=== PATIENT | female | born 1990 | race Caucasian/White ===

== ENCOUNTER 2016-11-19 06:52 | Emergency (ER) | payer MEDICAID ==
[~2016-11-19] VITALS: Ht 170.2 cm; Wt 58.3 kg
[~2016-11-19 06:52] MED LIST: CITA10TA4 PO; HYDR25TA11 PO; NAPR500T3 PO; TRAZ100T15 PO
[2016-11-19] MEDS ORDERED: ALBU0.63 NEB (08:09)
[2016-11-19] MEDS ORDERED: FAMOTIDINE 20 MG/2 ML IVP ONE (08:30)
[2016-11-19] MEDS ORDERED: SODIUM CHLORIDE 0.9% 1,000ML IVBOLUS ONE (08:30)
[2016-11-19] MEDS ORDERED: ONDANSETRON 2MG/ML, 2ML IVPush ONE (08:30)
[2016-11-19 08:52] LABS: ASPARTATE AMINO TRANSFERASE 17 U/L (15-37); BLOOD UREA NITROGEN 10 mg/dL (7-18)
[2016-11-19] MEDS ORDERED: FAMOTIDINE 20 MG/2 ML ONE (09:12)
[2016-11-19] MEDS ORDERED: ONDANSETRON 2MG/ML, 2ML ONE (09:13)
[2016-11-19 10:11] VITALS: BP 96/63
== END 2016-11-19 10:14 | disposition home or self-care (01) ==
LOC: ED 09:46
DX: K52.9 Noninfective gastroenteritis and colitis, unspecified (principal); F17.210 Nicotine dependence, cigarettes, uncomplicated; G40.909 Epilepsy, unspecified, not intractable, without status epilepticus; J45.909 Unspecified asthma, uncomplicated
CPT/HCPCS: 36415; 80053; 81003; 84703; 85025; 96374; 96375; 99284; J2405; J7030; S0028

== ENCOUNTER 2017-01-14 17:19 | Emergency (ER) | payer MEDICAID ==
[~2017-01-14] VITALS: Ht 170.2 cm; Wt 57.6 kg
[~2017-01-14 17:19] MED LIST changes: +ALBU0.63 NEB
[2017-01-14 17:23] VITALS: BP 117/76
== END 2017-01-14 18:32 | disposition home or self-care (01) ==
LOC: ED 18:25
DX: S83.91XA Sprain of unspecified site of right knee, initial encounter (principal); M25.461 Effusion, right knee; J45.909 Unspecified asthma, uncomplicated; F17.200 Nicotine dependence, unspecified, uncomplicated; Z88.5 Allergy status to narcotic agent; Z91.013 Allergy to seafood; X58.XXXA Exposure to other specified factors, initial encounter; Y93.89 Activity, other specified; Y92.89 Other specified places as the place of occurrence of the external cause; Y99.8 Other external cause status
CPT/HCPCS: 29505

== ENCOUNTER 2017-02-10 18:29 | Emergency (ER) | payer MEDICAID ==
[~2017-02-10] VITALS: Ht 170.2 cm; Wt 59.1 kg
[2017-02-10] MEDS ORDERED: CYCLOBENZAPRINE 10 MG TABLET ONE (19:26)
[2017-02-10] MEDS ORDERED: CYCLOBENZAPRINE 10 MG TABLET PO ONE (19:30)
[2017-02-10 19:37] LABS: BLOOD UREA NITROGEN 10 mg/dL (7-18)
[2017-02-10] MEDS ORDERED: KETOROLAC 30 MG/1 ML IM ONE (20:00)
[2017-02-10] MEDS ORDERED: KETOROLAC 30 MG/1 ML ONE (20:04)
[2017-02-10 20:55] VITALS: BP 107/69
== END 2017-02-10 20:57 | disposition home or self-care (01) ==
LOC: ED 19:54
DX: M26.621 Arthralgia of right temporomandibular joint (principal); G44.219 Episodic tension-type headache, not intractable; J45.909 Unspecified asthma, uncomplicated; Z98.51 Tubal ligation status
CPT/HCPCS: 36415; 70450; 80048; 81003; 82040; 85025; 93005; 96372; 99285; J1885

== ENCOUNTER 2017-03-29 14:54 | Emergency (ER) | payer MEDICAID ==
[~2017-03-29] VITALS: Ht 170.2 cm; Wt 57.0 kg
[2017-03-29 14:56] VITALS: BP 118/87
[2017-03-29] MEDS ORDERED: IBUPROFEN 200 MG TABLET ONE (15:24)
[2017-03-29] MEDS ORDERED: IBUPROFEN 200 MG TABLET PO ONE (15:30)
== END 2017-03-29 16:16 | disposition home or self-care (01) ==
LOC: ED 15:50
DX: S63.521A Sprain of radiocarpal joint of right wrist, initial encounter (principal); J45.909 Unspecified asthma, uncomplicated; F17.210 Nicotine dependence, cigarettes, uncomplicated; X58.XXXA Exposure to other specified factors, initial encounter; Y93.89 Activity, other specified; Y92.89 Other specified places as the place of occurrence of the external cause; Y99.8 Other external cause status
CPT/HCPCS: 29125

== ENCOUNTER 2017-08-14 10:51 | Emergency (ER) | payer MEDICAID ==
[~2017-08-14] VITALS: Ht 170.2 cm; Wt 60.1 kg
[~2017-08-14 10:51] MED LIST changes: -NAPR500T3 PO; +NAPR500T4 PO
[2017-08-14 10:53] VITALS: BP 118/79
[2017-08-14] MEDS ORDERED: SUMA25TA4 PO (11:17)
[2017-08-14] MEDS ORDERED: QUET25TA5 PO (11:17)
[2017-08-14] MEDS ORDERED: NAPR250T6 PO (11:17)
[2017-08-14] MEDS ORDERED: TRAZ100T15 PO (11:17)
== END 2017-08-14 12:01 | disposition home or self-care (01) ==
LOC: ED 11:55
DX: S83.91XA Sprain of unspecified site of right knee, initial encounter (principal); M54.9 Dorsalgia, unspecified; G89.29 Other chronic pain; F17.200 Nicotine dependence, unspecified, uncomplicated; J45.909 Unspecified asthma, uncomplicated; W10.9XXA Fall (on) (from) unspecified stairs and steps, initial encounter; Y93.89 Activity, other specified; Y99.8 Other external cause status; Y92.89 Other specified places as the place of occurrence of the external cause
CPT/HCPCS: 29505; 99284

== ENCOUNTER 2017-09-04 09:23 | Emergency (ER) | payer MEDICAID ==
[~2017-09-04] VITALS: Ht 170.2 cm; Wt 60.1 kg
[~2017-09-04 09:23] MED LIST changes: +NAPR250T6 PO; +QUET25TA5 PO; +SUMA25TA4 PO
[2017-09-04 09:24] VITALS: BP 113/72
== END 2017-09-04 10:19 | disposition home or self-care (01) ==
LOC: ED 09:50
DX: M25.561 Pain in right knee (principal); J45.909 Unspecified asthma, uncomplicated
CPT/HCPCS: 99283

== ENCOUNTER 2017-10-14 13:59 | Emergency (ER) | payer MEDICAID ==
[~2017-10-14] VITALS: Ht 172.7 cm; Wt 59.6 kg
[~2017-10-14 13:59] MED LIST changes: +NAPR-685 PO; -NAPR500T4 PO
[2017-10-14] MEDS ORDERED: DIPHENHYDRAMINE 25 MG CAPSULE PO ONE (14:30)
[2017-10-14] MEDS ORDERED: KETOROLAC 30 MG/1 ML IM ONE (14:30)
[2017-10-14] MEDS ORDERED: ONDANSETRON ODT 4 MG PO ONE (14:30)
[2017-10-14] MEDS ORDERED: KETOROLAC 30 MG/1 ML ONE (14:40)
[2017-10-14] MEDS ORDERED: ONDANSETRON ODT 4 MG ONE (14:40)
[2017-10-14] MEDS ORDERED: DIPHENHYDRAMINE 25 MG CAPSULE ONE (14:40)
[2017-10-14 15:45] VITALS: BP 115/65
== END 2017-10-14 15:46 | disposition home or self-care (01) ==
LOC: ED 15:40
DX: G43.909 Migraine, unspecified, not intractable, without status migrainosus (principal); M54.5 Low back pain; G89.29 Other chronic pain; J45.909 Unspecified asthma, uncomplicated; F32.9 Major depressive disorder, single episode, unspecified; F41.9 Anxiety disorder, unspecified
CPT/HCPCS: 70450; 96372; 99284; J1885; Q0162; Q0163

== ENCOUNTER 2017-12-26 16:01 | Emergency (ER) | payer MEDICAID ==
[~2017-12-26] VITALS: Ht 170.2 cm; Wt 57.9 kg
[~2017-12-26 16:01] MED LIST changes: +VISTARIL PO
[2017-12-26 16:08] VITALS: BP 113/79
== END 2017-12-26 18:10 | disposition left against medical advice (07) ==
LOC: ED 18:04
DX: M25.531 Pain in right wrist (principal)
CPT/HCPCS: 99281

== ENCOUNTER 2018-01-15 11:15 | Emergency (ER) | payer MEDICAID ==
[~2018-01-15] VITALS: Ht 170.2 cm; Wt 58.0 kg
[2018-01-15 12:03] LABS: BASOPHILS # (AUTO) 0.06 x10^3/uL (0-0.1); BASOPHILS % (AUTO) 1 % (0-1); EOSINOPHILS # (AUTO) 0.13 x10^3/uL (0-0.4); EOSINOPHILS % (AUTO) 2 % (1-7); LYMPHOCYTES # (AUTO) 2.51 x10^3/uL (1-3.4); LYMPHOCYTES % (AUTO) 33 % (22-44); MD NO; MEAN CORPUSCULAR HEMOGLOBIN 28.1 pg (27.0-34.8); MEAN CORPUSCULAR HGB CONC 32.8 g/dL (32.4-35.8); MEAN CORPUSCULAR VOLUME 85.6 fL (80-100); MEAN PLATELET VOLUME 10.5 fL (7.4-10.4); MONOCYTES % (AUTO) 7 % (2-9); NEUTROPHILS # (AUTO) 4.41 x10^3/uL (1.8-6.8); NEUTROPHILS % (AUTO) 58 % (42-75); PLATELET COUNT 205 x10^3/uL (130-400); RED BLOOD COUNT 4.53 x10^6/uL (3.82-5.3); RED CELL DISTRIBUTION WIDTH 13.6 % (9.6-15.2)
[2018-01-15 12:15] LABS: ALANINE AMINOTRANSFERASE 22 U/L (12-78); ALBUMIN 3.8 g/dL (3.4-5.0); ANION GAP 3 mmol/L (5-15); CALCIUM 8.8 mg/dL (8.5-10.1); CHLORIDE 111 mmol/L (98-107); CREATININE 0.82 mg/dL (0.55-1.02)
[2018-01-15 12:20] LABS: ALKALINE PHOSPHATASE 74 U/L (45-117); BILIRUBIN,TOTAL 0.2 mg/dL (0.2-1.0); TOTAL PROTEIN 7.3 g/dL (6.4-8.2)
[2018-01-15] MEDS ORDERED: HYDR25CA PO (12:27)
[2018-01-15] MEDS ORDERED: TRAZ50TA18 PO (12:27)
[2018-01-15] MEDS ORDERED: ONDANSETRON ODT 4 MG PO ONE (12:30)
[2018-01-15 12:32] LABS: MICROSCOPIC NOT IND
[2018-01-15] MEDS ORDERED: ONDANSETRON ODT 4 MG ONE (12:32)
[2018-01-15 12:39] LABS: CULTURE INDICATED? NO
[2018-01-15 13:32] VITALS: BP 96/64
== END 2018-01-15 13:37 | disposition home or self-care (01) ==
LOC: ED 12:30
DX: R11.2 Nausea with vomiting, unspecified (principal); R10.9 Unspecified abdominal pain; M79.1 Myalgia
CPT/HCPCS: 36415; 74021; 80053; 81003; 83690; 84703; 85025; 99285; Q0162

== ENCOUNTER 2018-01-24 03:38 | Emergency (ER) | payer MEDICAID ==
[~2018-01-24] VITALS: Ht 170.2 cm; Wt 57.0 kg
[~2018-01-24 03:38] MED LIST changes: +HYDR25CA PO; +TRAZ50TA18 PO
[2018-01-24 03:40] VITALS: BP 110/75
== END 2018-01-24 04:53 | disposition home or self-care (01) ==
LOC: ED 04:47
DX: R07.89 Other chest pain (principal); R05 Cough; J45.909 Unspecified asthma, uncomplicated; Z91.013 Allergy to seafood; Z88.6 Allergy status to analgesic agent; F17.200 Nicotine dependence, unspecified, uncomplicated
CPT/HCPCS: 71046; 93005; 99284

== ENCOUNTER 2018-02-19 03:54 | Emergency (ER) | payer MEDICAID ==
[~2018-02-19] VITALS: Ht 170.2 cm; Wt 57.8 kg
[~2018-02-19 03:54] MED LIST changes: +TRAZ-136 PO; +TRAZ-137 PO; -TRAZ100T15 PO; -TRAZ50TA18 PO
[2018-02-19 03:56] VITALS: BP 106/74
== END 2018-02-19 04:20 | disposition home or self-care (01) ==
LOC: ED 04:15
DX: R07.89 Other chest pain (principal); J45.909 Unspecified asthma, uncomplicated
CPT/HCPCS: 93005; 99283

== ENCOUNTER 2018-03-24 10:41 | Emergency (ER) | payer MEDICAID ==
[~2018-03-24] VITALS: Ht 170.2 cm; Wt 57.9 kg
[2018-03-24 12:02] LABS: BASOPHILS # (AUTO) 0.02 x10^3/uL (0-0.1); BASOPHILS % (AUTO) 0 % (0-1); EOSINOPHILS # (AUTO) 0.12 x10^3/uL (0-0.4); EOSINOPHILS % (AUTO) 2 % (1-7); LYMPHOCYTES # (AUTO) 1.75 x10^3/uL (1-3.4); LYMPHOCYTES % (AUTO) 33 % (22-44); MD NO; MEAN CORPUSCULAR HEMOGLOBIN 28.4 pg (27.0-34.8); MEAN CORPUSCULAR HGB CONC 32.9 g/dL (32.4-35.8); MEAN CORPUSCULAR VOLUME 86.1 fL (80-100); MEAN PLATELET VOLUME 10.6 fL (7.4-10.4); MONOCYTES # (AUTO) 0.33 x10^3/uL (0.2-0.8); MONOCYTES % (AUTO) 6 % (2-9); NEUTROPHILS # (AUTO) 3.11 x10^3/uL (1.8-6.8); NEUTROPHILS % (AUTO) 58 % (42-75); PLATELET COUNT 170 x10^3/uL (130-400); RED BLOOD COUNT 4.67 x10^6/uL (3.82-5.3); RED CELL DISTRIBUTION WIDTH 14.9 % (9.6-15.2)
[2018-03-24 12:11] LABS: ALBUMIN 3.7 g/dL (3.4-5.0); ANION GAP 8 mmol/L (5-15); CHLORIDE 112 mmol/L (98-107)
[2018-03-24 12:17] LABS: ALANINE AMINOTRANSFERASE 20 U/L (12-78); ALKALINE PHOSPHATASE 77 U/L (45-117); BILIRUBIN,TOTAL 0.4 mg/dL (0.2-1.0); CREATININE 0.75 mg/dL (0.55-1.02); TOTAL PROTEIN 7.5 g/dL (6.4-8.2)
[2018-03-24] MEDS ORDERED: ONDANSETRON ODT 4 MG ONE (12:24)
[2018-03-24] MEDS ORDERED: ONDANSETRON ODT 4 MG PO ONE (12:30)
[2018-03-24 12:47] LABS: MICROSCOPIC NOT IND
[2018-03-24 12:53] LABS: CULTURE INDICATED? NO
[2018-03-24 13:17] VITALS: BP 108/65
== END 2018-03-24 13:58 | disposition home or self-care (01) ==
LOC: ED 13:30
DX: K29.00 Acute gastritis without bleeding (principal); G43.909 Migraine, unspecified, not intractable, without status migrainosus; G89.29 Other chronic pain; J45.909 Unspecified asthma, uncomplicated; G40.909 Epilepsy, unspecified, not intractable, without status epilepticus; Z90.89 Acquired absence of other organs; Z98.51 Tubal ligation status
CPT/HCPCS: 36415; 80053; 81003; 83690; 84703; 85025; 99284; Q0162

== ENCOUNTER 2018-05-12 18:32 | Emergency (ER) | payer MEDICAID ==
[~2018-05-12] VITALS: Ht 170.2 cm; Wt 59.0 kg
[2018-05-12 18:59] LABS: BASOPHILS # (AUTO) 0.03 x10^3/uL (0-0.1); BASOPHILS % (AUTO) 0 % (0-1); EOSINOPHILS # (AUTO) 0.15 x10^3/uL (0-0.4); EOSINOPHILS % (AUTO) 2 % (1-7); LYMPHOCYTES # (AUTO) 2.37 x10^3/uL (1-3.4); LYMPHOCYTES % (AUTO) 32 % (22-44); MD NO; MEAN CORPUSCULAR HEMOGLOBIN 29.2 pg (27.0-34.8); MEAN CORPUSCULAR HGB CONC 33.5 g/dL (32.4-35.8); MEAN PLATELET VOLUME 10.8 fL (7.4-10.4); MONOCYTES # (AUTO) 0.34 x10^3/uL (0.2-0.8); MONOCYTES % (AUTO) 5 % (2-9); NEUTROPHILS # (AUTO) 4.51 x10^3/uL (1.8-6.8); NEUTROPHILS % (AUTO) 61 % (42-75); PLATELET COUNT 199 x10^3/uL (130-400); RED BLOOD COUNT 4.66 x10^6/uL (3.82-5.3); RED CELL DISTRIBUTION WIDTH 13.6 % (9.6-15.2)
[2018-05-12 19:10] LABS: ALANINE AMINOTRANSFERASE 21 U/L (12-78); ALBUMIN 2.9 g/dL (3.4-5.0); ANION GAP 8 mmol/L (5-15); CALCIUM 8.3 mg/dL (8.5-10.1); CHLORIDE 111 mmol/L (98-107); CREATININE 0.79 mg/dL (0.55-1.02)
[2018-05-12 19:12] LABS: ALKALINE PHOSPHATASE 57 U/L (45-117); BILIRUBIN,TOTAL 0.2 mg/dL (0.2-1.0); TOTAL PROTEIN 5.8 g/dL (6.4-8.2)
[2018-05-12 19:14] VITALS: BP 116/69
[2018-05-12] MEDS ORDERED: PANTOPRAZOLE 20MG TABLET PO ONE (19:30)
[2018-05-12] MEDS ORDERED: ONDANSETRON ODT 4 MG PO ONE (19:30)
[2018-05-12] MEDS ORDERED: PANTOPRAZOLE 20MG TABLET ONE (19:37)
[2018-05-12] MEDS ORDERED: ONDANSETRON ODT 4 MG ONE (19:37)
[2018-05-12 19:59] LABS: MICROSCOPIC NOT IND
[2018-05-12 20:00] LABS: CULTURE INDICATED? NO
== END 2018-05-12 20:14 | disposition home or self-care (01) ==
LOC: ED 19:57
DX: B34.9 Viral infection, unspecified (principal); R10.84 Generalized abdominal pain; J02.9 Acute pharyngitis, unspecified; R11.2 Nausea with vomiting, unspecified; F17.200 Nicotine dependence, unspecified, uncomplicated
CPT/HCPCS: 36415; 80053; 81003; 81025; 83690; 85025; 87081; 87880; 99284; Q0162

== ENCOUNTER 2018-05-19 19:10 | Emergency (ER) | payer MEDICAID ==
[~2018-05-19] VITALS: Ht 170.2 cm; Wt 55.0 kg
[2018-05-19 19:39] LABS: BASOPHILS # (AUTO) 0.05 x10^3/uL (0-0.1); BASOPHILS % (AUTO) 1 % (0-1); EOSINOPHILS # (AUTO) 0.09 x10^3/uL (0-0.4); EOSINOPHILS % (AUTO) 1 % (1-7); LYMPHOCYTES # (AUTO) 2.54 x10^3/uL (1-3.4); LYMPHOCYTES % (AUTO) 23 % (22-44); MD NO; MEAN CORPUSCULAR HEMOGLOBIN 29.2 pg (27.0-34.8); MEAN CORPUSCULAR HGB CONC 33.7 g/dL (32.4-35.8); MEAN CORPUSCULAR VOLUME 86.5 fL (80-100); MEAN PLATELET VOLUME 10.5 fL (7.4-10.4); MONOCYTES # (AUTO) 0.45 x10^3/uL (0.2-0.8); MONOCYTES % (AUTO) 4 % (2-9); NEUTROPHILS # (AUTO) 8.05 x10^3/uL (1.8-6.8); NEUTROPHILS % (AUTO) 72 % (42-75); PLATELET COUNT 224 x10^3/uL (130-400); RED BLOOD COUNT 4.74 x10^6/uL (3.82-5.3); RED CELL DISTRIBUTION WIDTH 13.8 % (9.6-15.2)
[2018-05-19 19:46] VITALS: BP 106/64
[2018-05-19 19:47] LABS: ALANINE AMINOTRANSFERASE 25 U/L (12-78); ALBUMIN 3.8 g/dL (3.4-5.0); ANION GAP 7 mmol/L (5-15); CALCIUM 8.6 mg/dL (8.5-10.1); CHLORIDE 110 mmol/L (98-107); CREATININE 0.73 mg/dL (0.55-1.02)
[2018-05-19 19:51] LABS: ALKALINE PHOSPHATASE 69 U/L (45-117); BILIRUBIN,TOTAL 0.4 mg/dL (0.2-1.0); TOTAL PROTEIN 6.7 g/dL (6.4-8.2)
[2018-05-19 20:08] LABS: MICROSCOPIC AUTO
[2018-05-19 20:11] LABS: CULTURE INDICATED? YES
[2018-05-19] MEDS ORDERED: CEFDINIR 300 MG CAPSULE PO ONE (20:23)
[2018-05-19] MEDS ORDERED: CEFDINIR 300 MG CAPSULE ONE (20:34)
== END 2018-05-19 20:56 | disposition home or self-care (01) ==
LOC: ED 19:41
DX: N10 Acute pyelonephritis (principal); G89.29 Other chronic pain; G40.909 Epilepsy, unspecified, not intractable, without status epilepticus; J45.909 Unspecified asthma, uncomplicated
CPT/HCPCS: 36415; 80053; 81001; 84703; 85025; 87077; 87086; 87186; 99284

== ENCOUNTER 2018-06-04 13:27 | Emergency (ER) | payer MEDICAID ==
[~2018-06-04] VITALS: Ht 170.2 cm; Wt 60.8 kg
[2018-06-04 13:32] VITALS: BP 109/56
[2018-06-04] MEDS ORDERED: DEXAMETHASONE 4 MG/ML, 1ML PO ONE (14:30)
[2018-06-04] MEDS ORDERED: DEXAMETHASONE 4 MG/ML, 5ML ONE (14:34)
== END 2018-06-04 15:01 | disposition home or self-care (01) ==
LOC: ED 14:55
DX: J02.0 Streptococcal pharyngitis (principal); B95.5 Unspecified streptococcus as the cause of diseases classified elsewhere; J45.909 Unspecified asthma, uncomplicated; G40.909 Epilepsy, unspecified, not intractable, without status epilepticus; G43.909 Migraine, unspecified, not intractable, without status migrainosus; F17.200 Nicotine dependence, unspecified, uncomplicated; Z90.89 Acquired absence of other organs; Z98.890 Other specified postprocedural states; Z98.51 Tubal ligation status
CPT/HCPCS: 70360; 99283; J1100

== ENCOUNTER 2018-06-15 18:34 | Emergency (ER) | payer MEDICAID ==
[~2018-06-15] VITALS: Ht 170.2 cm; Wt 59.8 kg
[~2018-06-15 18:34] MED LIST changes: -TRAZ-136 PO; +TRAZ50TA66 PO
[2018-06-15 20:56] VITALS: BP 115/68
== END 2018-06-15 20:58 | disposition home or self-care (01) ==
LOC: ED 18:53
DX: N63.0 Unspecified lump in unspecified breast (principal); G43.909 Migraine, unspecified, not intractable, without status migrainosus; J45.909 Unspecified asthma, uncomplicated; G40.909 Epilepsy, unspecified, not intractable, without status epilepticus; F17.200 Nicotine dependence, unspecified, uncomplicated; Z90.49 Acquired absence of other specified parts of digestive tract
CPT/HCPCS: 76641; 99284

== ENCOUNTER 2018-09-09 12:44 | Emergency (ER) | payer MEDICAID ==
[~2018-09-09] VITALS: Ht 170.2 cm; Wt 59.0 kg
[2018-09-09 13:11] VITALS: BP 104/70
--- NOTE | 2018-09-09 13:21 | NUR ---
AMBULATED WITHOUT ASSISTANCE TO RM 5.
[2018-09-09] MEDS ORDERED: KETOROLAC 30 MG/1 ML ONE (13:59)
[2018-09-09] MEDS ORDERED: KETOROLAC 30 MG/1 ML IM ONE (14:00)
--- NOTE | 2018-09-09 14:03 | NUR ---
PT MED NOTED RIGHT KNEE PAIN 10/10
== END 2018-09-09 15:33 | disposition home or self-care (01) ==
LOC: ED 15:27
DX: G89.11 Acute pain due to trauma (principal); M25.561 Pain in right knee; G43.909 Migraine, unspecified, not intractable, without status migrainosus; G40.909 Epilepsy, unspecified, not intractable, without status epilepticus; F41.1 Generalized anxiety disorder; F32.9 Major depressive disorder, single episode, unspecified; F17.200 Nicotine dependence, unspecified, uncomplicated; Z72.9 Problem related to lifestyle, unspecified; Z75.9 Unspecified problem related to medical facilities and other health care; Z87.19 Personal history of other diseases of the digestive system
CPT/HCPCS: 73564; 96372; 99283; J1885

== ENCOUNTER 2018-12-01 14:20 | Emergency (ER) | payer MEDICAID ==
[~2018-12-01] VITALS: Ht 170.2 cm; Wt 59.0 kg
[2018-12-01 14:24] VITALS: BP 111/59
== END 2018-12-01 15:29 | disposition home or self-care (01) ==
LOC: ED 15:23
DX: S83.411A Sprain of medial collateral ligament of right knee, initial encounter (principal); F32.9 Major depressive disorder, single episode, unspecified; J45.909 Unspecified asthma, uncomplicated; G40.909 Epilepsy, unspecified, not intractable, without status epilepticus; Z90.89 Acquired absence of other organs; F17.210 Nicotine dependence, cigarettes, uncomplicated; X58.XXXA Exposure to other specified factors, initial encounter; Y93.89 Activity, other specified; Y92.89 Other specified places as the place of occurrence of the external cause; Y99.8 Other external cause status
CPT/HCPCS: 29505; 99283

== ENCOUNTER 2019-02-02 17:14 | Emergency (ER) | payer MEDICAID ==
[~2019-02-02] VITALS: Ht 170.2 cm; Wt 57.0 kg
[~2019-02-02 17:14] MED LIST changes: +HYDR-826 PO; -HYDR25TA11 PO
[2019-02-02] MEDS ORDERED: FAMOTIDINE 20 MG TABLET PO ONE (18:00)
[2019-02-02] MEDS ORDERED: DIPHENHYDRAMINE 25 MG CAPSULE PO ONE (18:00)
[2019-02-02] MEDS ORDERED: DIPHENHYDRAMINE 50 MG CAPSULE ONE (18:07)
[2019-02-02] MEDS ORDERED: FAMOTIDINE 20 MG TABLET ONE (18:07)
[2019-02-02 19:05] VITALS: BP 116/67
--- NOTE | 2019-02-02 19:06 | NUR ---
AFTER MEDICATED PT HAS DECREASE IN FACIAL ERYTHEMA AT SITE OF INSECT BITE. DOES NOT ITCH ANYMORE AND FEELING IS BACK IN FACE.
== END 2019-02-02 19:08 | disposition home or self-care (01) ==
LOC: ED 19:02
DX: L50.0 Allergic urticaria (principal); T63.441A Toxic effect of venom of bees, accidental (unintentional), initial encounter; J45.909 Unspecified asthma, uncomplicated; G40.909 Epilepsy, unspecified, not intractable, without status epilepticus; F41.1 Generalized anxiety disorder; Z90.89 Acquired absence of other organs; F17.200 Nicotine dependence, unspecified, uncomplicated
CPT/HCPCS: 99284; J7512; Q0163

== ENCOUNTER 2019-02-18 23:44 | Emergency (ER) | payer MEDICAID ==
[~2019-02-18] VITALS: Ht 170.2 cm; Wt 57.2 kg
[2019-02-19 02:18] VITALS: BP 101/60
== END 2019-02-19 02:24 | disposition home or self-care (01) ==
LOC: ED 02-19 02:15
DX: G43.001 Migraine without aura, not intractable, with status migrainosus (principal); F17.200 Nicotine dependence, unspecified, uncomplicated; J45.909 Unspecified asthma, uncomplicated; G40.909 Epilepsy, unspecified, not intractable, without status epilepticus
CPT/HCPCS: 96374; 96375; 99283; J0780; J1200; J1885; J2405

== ENCOUNTER 2019-06-15 19:56 | Emergency (ER) | payer MEDICAID, OTHER ==
[~2019-06-15] VITALS: Ht 170.2 cm; Wt 58.4 kg
--- NOTE | 2019-06-15 20:16 | NUR ---
THIS IS A 28 YO FEMALE COMING IN FOR N/V/D X3 DAYS WITH BILATERAL FLANK PAIN STARTING TODAY. PAIN IS CONSTANT, SHARP, AND 10/10 PAIN. PATIENT STATES "IT ALSO WORTHY A LITTLE WHEN I PEE". DENIES VISIBLE BLOOD IN URINE. PATIENT A&O X4, VSS AT THIS TIME. CALL LIGHT IN REACH, FAMILY IN ROOM, DENIES NEEDS AT THIS TIME.
[2019-06-15] MEDS ORDERED: QUET100T4 PO (20:20)
[2019-06-15] MEDS ORDERED: TRAZ150T62 PO (20:21)
[2019-06-15] MEDS ORDERED: SODIUM CHLORIDE FLUSH 10ML SYR IVF ONE (20:30)
[2019-06-15] MEDS ORDERED: MORPHINE SULFATE 4 MG/ML, 1ML IVPush PRN (20:30)
[2019-06-15] MEDS ORDERED: ONDANSETRON 2MG/ML, 2ML IVPush ONE (20:30)
[2019-06-15] MEDS ORDERED: MORPHINE SULFATE 4 MG/ML, 1ML ONE (20:36)
[2019-06-15] MEDS ORDERED: ONDANSETRON 2MG/ML, 2ML ONE (20:36)
--- NOTE | 2019-06-15 20:45 | NUR ---
PATIENT MEDICATED PER EMAR, TOLERATED WELL. DENIES NEEDS AT THIS TIME. Addendum: 06/15/19 at 2055 by LUCRECIA CHARTED UNDER WRONG USER. NOTE DONE BY MARSHA Lindo RN.
[2019-06-15 20:49] LABS: BASOPHILS # (AUTO) 0.04 x10^3/uL (0-0.1); BASOPHILS % (AUTO) 1 % (0-1); EOSINOPHILS % (AUTO) 4 % (1-7); LYMPHOCYTES # (AUTO) 1.95 x10^3/uL (1-3.4); LYMPHOCYTES % (AUTO) 35 % (22-44); MD NO; MEAN CORPUSCULAR HEMOGLOBIN 27.5 pg (27.0-34.8); MEAN CORPUSCULAR HGB CONC 32.4 g/dL (32.4-35.8); MEAN CORPUSCULAR VOLUME 84.8 fL (80-100); MEAN PLATELET VOLUME 11.1 fL (7.4-10.4); MICROSCOPIC AUTO; MONOCYTES # (AUTO) 0.33 x10^3/uL (0.2-0.8); MONOCYTES % (AUTO) 6 % (2-9); NEUTROPHILS # (AUTO) 3.01 x10^3/uL (1.8-6.8); NEUTROPHILS % (AUTO) 55 % (42-75); PLATELET COUNT 168 x10^3/uL (130-400); RED BLOOD COUNT 4.86 x10^6/uL (3.82-5.3)
[2019-06-15 20:54] LABS: ALANINE AMINOTRANSFERASE 26 U/L (12-78); ALBUMIN 3.9 g/dL (3.4-5.0); ANION GAP 5 mmol/L (5-15); CALCIUM 9.1 mg/dL (8.5-10.1); CHLORIDE 111 mmol/L (98-107)
--- NOTE | 2019-06-15 20:54 | NUR ---
PATIENT STATES NAUSEA IS NOT BAD AND PAIN IS NOW 10/15 Addendum: 06/15/19 at 2055 by LUCRECIA CHARTED UNDER WRONG USER. NOTE DONE BY MARSHA Lindo RN.
[2019-06-15 20:56] LABS: CULTURE INDICATED? YES
[2019-06-15 20:59] LABS: ALKALINE PHOSPHATASE 76 U/L (45-117); BILIRUBIN,TOTAL 0.5 mg/dL (0.2-1.0); CREATININE 0.76 mg/dL (0.55-1.02); TOTAL PROTEIN 7.7 g/dL (6.4-8.2)
[2019-06-15 21:16] VITALS: BP 95/54
== END 2019-06-15 22:20 | disposition home or self-care (01) ==
LOC: ED 20:22
DX: N39.0 Urinary tract infection, site not specified (principal); G89.29 Other chronic pain; G43.909 Migraine, unspecified, not intractable, without status migrainosus; Z90.89 Acquired absence of other organs
CPT/HCPCS: 36415; 80053; 81001; 83690; 84703; 85025; 87077; 87086; 87186; 96374; 96375; 99283; J2270; J2405

== ENCOUNTER 2019-07-10 18:32 | Emergency (ER) | payer MEDICAID ==
[~2019-07-10] VITALS: Ht 170.2 cm; Wt 57.8 kg
[~2019-07-10 18:32] MED LIST changes: +QUET100T4 PO; +TRAZ150T62 PO
[2019-07-10 18:34] VITALS: BP 106/75
--- NOTE | 2019-07-10 18:44 | NUR ---
PT C/O RIGHT FOOT PAIN X2 WEEKS AND WORSE LAST COUPLE DAYS. PAIN WHEN WALKING. C/O N/T. DENIES TRAUMA.
== END 2019-07-10 20:25 | disposition home or self-care (01) ==
LOC: ED 20:19
DX: M79.673 Pain in unspecified foot (principal); J45.909 Unspecified asthma, uncomplicated; G40.909 Epilepsy, unspecified, not intractable, without status epilepticus; Z98.51 Tubal ligation status; Z90.89 Acquired absence of other organs
CPT/HCPCS: 99283

== ENCOUNTER 2019-07-16 09:10 | Emergency (ER) | payer MEDICAID ==
[~2019-07-16] VITALS: Ht 170.2 cm; Wt 59.6 kg
[~2019-07-16 09:10] MED LIST changes: -TRAZ-137 PO; +TRAZ-175 PO
[2019-07-16 09:14] VITALS: BP 124/67
[2019-07-16] MEDS ORDERED: ACETAMINOPHEN 325 MG TABLET PO ONE (09:30)
[2019-07-16] MEDS ORDERED: ACETAMINOPHEN 325 MG TABLET ONE (09:37)
== END 2019-07-16 10:25 | disposition home or self-care (01) ==
LOC: ED 10:00
DX: J02.8 Acute pharyngitis due to other specified organisms (principal); J45.909 Unspecified asthma, uncomplicated; G43.909 Migraine, unspecified, not intractable, without status migrainosus; G89.29 Other chronic pain; G40.909 Epilepsy, unspecified, not intractable, without status epilepticus; F17.200 Nicotine dependence, unspecified, uncomplicated; Z98.51 Tubal ligation status; Z90.89 Acquired absence of other organs
CPT/HCPCS: 87081; 87880; 99283

== ENCOUNTER 2019-08-02 18:44 | Emergency (ER) | payer MEDICAID ==
[~2019-08-02] VITALS: Ht 170.2 cm; Wt 61.6 kg
[~2019-08-02 18:44] MED LIST changes: +TRAZ-137 PO; -TRAZ-175 PO
[2019-08-02 18:50] VITALS: BP 109/44
== END 2019-08-02 19:56 | disposition home or self-care (01) ==
LOC: ED 19:50
DX: S90.31XA Contusion of right foot, initial encounter (principal); J45.909 Unspecified asthma, uncomplicated; F17.210 Nicotine dependence, cigarettes, uncomplicated; Z90.49 Acquired absence of other specified parts of digestive tract; Z98.51 Tubal ligation status; X58.XXXA Exposure to other specified factors, initial encounter; Y93.89 Activity, other specified; Y92.098 Other place in other non-institutional residence as the place of occurrence of the external cause; Y99.8 Other external cause status
CPT/HCPCS: 99283

== ENCOUNTER 2019-08-06 15:34 | Emergency (ER) | payer MEDICAID ==
[~2019-08-06] VITALS: Ht 170.2 cm; Wt 60.2 kg
--- NOTE | 2019-08-06 15:52 | NUR ---
FIRST CONTACT WITH PT. PT STATES "I HAVEN'T HAD A BOWL MOVEMENT IN A WEEK". PT C/O ABD PAIN WITH NAUSEA. PT'S AOX4. RESPS EVEN AND UNLABORED/ BP/SPO2 MONITORS IN PLACE. CALL LIGHT WITHIN REACH.
--- NOTE | 2019-08-06 15:59 | NUR ---
pt amb to br with steady gait for ua.
[2019-08-06 16:21] LABS: MICROSCOPIC AUTO
[2019-08-06 16:26] LABS: CULTURE INDICATED? YES
[2019-08-06 16:37] LABS: BASOPHILS # (AUTO) 0.04 x10^3/uL (0-0.1); BASOPHILS % (AUTO) 1 % (0-1); EOSINOPHILS # (AUTO) 0.13 x10^3/uL (0-0.4); EOSINOPHILS % (AUTO) 2 % (1-7); LYMPHOCYTES # (AUTO) 1.82 x10^3/uL (1-3.4); LYMPHOCYTES % (AUTO) 30 % (22-44); MD NO; MEAN CORPUSCULAR HEMOGLOBIN 27.4 pg (27.0-34.8); MEAN CORPUSCULAR HGB CONC 32.6 g/dL (32.4-35.8); MEAN CORPUSCULAR VOLUME 84.2 fL (80-100); MEAN PLATELET VOLUME 10.2 fL (7.4-10.4); MONOCYTES # (AUTO) 0.38 x10^3/uL (0.2-0.8); MONOCYTES % (AUTO) 6 % (2-9); NEUTROPHILS # (AUTO) 3.75 x10^3/uL (1.8-6.8); NEUTROPHILS % (AUTO) 61 % (42-75); PLATELET COUNT 232 x10^3/uL (130-400); RED BLOOD COUNT 4.59 x10^6/uL (3.82-5.3)
[2019-08-06 16:47] LABS: ALANINE AMINOTRANSFERASE 21 U/L (12-78); ALBUMIN 3.7 g/dL (3.4-5.0); ANION GAP 6 mmol/L (5-15); CALCIUM 8.9 mg/dL (8.5-10.1); CHLORIDE 110 mmol/L (98-107); CREATININE 0.77 mg/dL (0.55-1.02)
[2019-08-06 16:51] LABS: ALKALINE PHOSPHATASE 83 U/L (45-117); BILIRUBIN,TOTAL 0.2 mg/dL (0.2-1.0); TOTAL PROTEIN 7.5 g/dL (6.4-8.2)
[2019-08-06 17:15] VITALS: BP 100/63
--- NOTE | 2019-08-06 17:15 | NUR ---
H ENEMA GIVEN AT THIS TIME. PT TOLERATED WELL. BEDSIDE COMMODE AT BEDSIDE.
--- NOTE | 2019-08-06 18:01 | NUR ---
Patient given discharge instructions and they have confirmed that they understand the instructions. Patient ambulatory with steady gait.
== END 2019-08-06 18:02 | disposition home or self-care (01) ==
LOC: ED 17:30
DX: K59.00 Constipation, unspecified (principal); R11.0 Nausea; G40.909 Epilepsy, unspecified, not intractable, without status epilepticus; J45.909 Unspecified asthma, uncomplicated
CPT/HCPCS: 36415; 74021; 80053; 81001; 83690; 84703; 85025; 87086; 99284

== ENCOUNTER 2019-08-30 19:42 | Emergency (ER) | payer MEDICAID ==
[~2019-08-30] VITALS: Ht 170.2 cm; Wt 59.1 kg
[~2019-08-30 19:42] MED LIST changes: -TRAZ-137 PO; +TRAZ-175 PO
[2019-08-30 20:14] VITALS: BP 101/74
[2019-08-30] MEDS ORDERED: IBUPROFEN 600 MG TABLET PO ONE (20:30)
[2019-08-30] MEDS ORDERED: IBUPROFEN 200 MG TABLET ONE (20:35)
== END 2019-08-30 21:22 | disposition home or self-care (01) ==
LOC: ED 21:16
DX: S90.02XA Contusion of left ankle, initial encounter (principal); S80.12XA Contusion of left lower leg, initial encounter; J45.909 Unspecified asthma, uncomplicated; G40.909 Epilepsy, unspecified, not intractable, without status epilepticus; F17.210 Nicotine dependence, cigarettes, uncomplicated; X58.XXXA Exposure to other specified factors, initial encounter; Y93.89 Activity, other specified; Y92.410 Unspecified street and highway as the place of occurrence of the external cause; Y99.8 Other external cause status
CPT/HCPCS: 99284

== ENCOUNTER 2020-01-29 17:51 | Emergency (ER) | payer MEDICAID ==
[~2020-01-29] VITALS: Ht 170.2 cm; Wt 58.0 kg
[2020-01-29 17:59] VITALS: BP 103/61
--- NOTE | 2020-01-29 18:00 | NUR ---
PT HAS CO GI N/V. DENIES CP OR SOB, NO COUGH. MEDICATED PER ORDERS
[2020-01-29] MEDS ORDERED: IBUPROFEN 800 MG TABLET ONE (18:17)
[2020-01-29] MEDS ORDERED: ONDANSETRON ODT 4 MG ONE (18:17)
[2020-01-29] MEDS ORDERED: ONDANSETRON ODT 4 MG PO ONE (18:30)
[2020-01-29] MEDS ORDERED: IBUPROFEN 800 MG TABLET PO ONE (18:30)
[2020-01-29 18:42] LABS: BASOPHILS # (AUTO) 0.04 x10^3/uL (0-0.1); BASOPHILS % (AUTO) 1 % (0-1); EOSINOPHILS # (AUTO) 0.13 x10^3/uL (0-0.4); EOSINOPHILS % (AUTO) 3 % (1-7); LYMPHOCYTES # (AUTO) 1.67 x10^3/uL (1-3.4); LYMPHOCYTES % (AUTO) 36 % (22-44); MD NO; MEAN CORPUSCULAR HEMOGLOBIN 27.8 pg (27.0-34.8); MEAN CORPUSCULAR HGB CONC 32.7 g/dL (32.4-35.8); MEAN PLATELET VOLUME 10.9 fL (7.4-10.4); MONOCYTES # (AUTO) 0.32 x10^3/uL (0.2-0.8); MONOCYTES % (AUTO) 7 % (2-9); NEUTROPHILS # (AUTO) 2.43 x10^3/uL (1.8-6.8); NEUTROPHILS % (AUTO) 53 % (42-75); PLATELET COUNT 193 x10^3/uL (130-400); RED CELL DISTRIBUTION WIDTH 16.5 % (9.6-15.2)
[2020-01-29 18:48] LABS: ALANINE AMINOTRANSFERASE 17 U/L (12-78); ALBUMIN 3.5 g/dL (3.4-5.0); ANION GAP 9 mmol/L (5-15); CALCIUM 9.7 mg/dL (8.5-10.1); CHLORIDE 109 mmol/L (98-107); CREATININE 0.89 mg/dL (0.55-1.02)
--- NOTE | 2020-01-29 18:51 | NUR ---
REPORT TO CECILLE
[2020-01-29 18:52] LABS: ALKALINE PHOSPHATASE 74 U/L (45-117); BILIRUBIN,TOTAL 0.4 mg/dL (0.2-1.0); TOTAL PROTEIN 6.8 g/dL (6.4-8.2)
== END 2020-01-29 19:30 | disposition home or self-care (01) ==
LOC: ED 19:08
DX: K52.9 Noninfective gastroenteritis and colitis, unspecified (principal); R11.2 Nausea with vomiting, unspecified; G43.909 Migraine, unspecified, not intractable, without status migrainosus; G40.909 Epilepsy, unspecified, not intractable, without status epilepticus; J45.909 Unspecified asthma, uncomplicated; G89.29 Other chronic pain; F17.200 Nicotine dependence, unspecified, uncomplicated; Z90.89 Acquired absence of other organs
CPT/HCPCS: 36415; 80053; 83690; 84703; 85025; 99283; Q0162

== ENCOUNTER 2020-04-05 12:01 | Emergency (ER) | payer MEDICAID ==
[~2020-04-05] VITALS: Ht 170.2 cm; Wt 59.5 kg
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
[2020-04-05] MEDS ORDERED: KETOROLAC 30 MG/1 ML IM ONE (13:00)
[2020-04-05] MEDS ORDERED: DIAZEPAM 5 MG TABLET PO ONE (13:00)
[2020-04-05] MEDS ORDERED: DIAZEPAM 5 MG TABLET ONE (13:08)
[2020-04-05] MEDS ORDERED: KETOROLAC 30 MG/1 ML ONE (13:08)
[2020-04-05 14:01] VITALS: BP 127/78
== END 2020-04-05 14:03 | disposition home or self-care (01) ==
LOC: ED 13:08
DX: M54.42 Lumbago with sciatica, left side (principal); F12.10 Cannabis abuse, uncomplicated; F17.210 Nicotine dependence, cigarettes, uncomplicated; G40.909 Epilepsy, unspecified, not intractable, without status epilepticus; J45.909 Unspecified asthma, uncomplicated; Z90.89 Acquired absence of other organs; Z98.51 Tubal ligation status
CPT/HCPCS: 96372; 99283; J1885

== ENCOUNTER 2020-08-20 00:20 | Emergency (ER) | payer MEDICAID ==
[~2020-08-20] VITALS: Ht 170.2 cm; Wt 60.9 kg
[2020-08-20] MEDS ORDERED: ONDANSETRON 2MG/ML, 2ML ONE (00:48)
--- NOTE | 2020-08-20 00:51 | NUR ---
pt medicated per mar
[2020-08-20] MEDS ORDERED: SODIUM CHLORIDE 0.9% 1,000ML IVBOLUS ONE (01:00)
[2020-08-20] MEDS ORDERED: ONDANSETRON 2MG/ML, 2ML IVPush ONE (01:00)
[2020-08-20 01:07] LABS: ALANINE AMINOTRANSFERASE 19 U/L (12-78); ALBUMIN 3.9 g/dL (3.4-5.0); ANION GAP 8 mmol/L (5-15); BASOPHILS % (AUTO) 1 % (0-1); CALCIUM 8.6 mg/dL (8.5-10.1); CHLORIDE 113 mmol/L (98-107); EOSINOPHILS % (AUTO) 2 % (1-7); LYMPHOCYTES % (AUTO) 27 % (22-44); MEAN CORPUSCULAR HEMOGLOBIN 25.6 pg (27.0-34.8); MEAN CORPUSCULAR HGB CONC 32.4 g/dL (32.4-35.8); MEAN PLATELET VOLUME 9.9 fL (7.4-10.4); MONOCYTES % (AUTO) 5 % (2-9); NEUTROPHILS % (AUTO) 65 % (42-75); PLATELET COUNT 231 x10^3/uL (130-400); RED BLOOD COUNT 4.44 x10^6/uL (3.82-5.3); RED CELL DISTRIBUTION WIDTH 14.2 % (9.6-15.2)
[2020-08-20 01:08] LABS: MD NO
[2020-08-20 01:12] LABS: ALKALINE PHOSPHATASE 77 U/L (45-117); BILIRUBIN,TOTAL 0.2 mg/dL (0.2-1.0); TOTAL PROTEIN 7.2 g/dL (6.4-8.2)
[2020-08-20 03:40] VITALS: BP 132/74
--- NOTE | 2020-08-20 03:42 | NUR ---
Patient/Caregiver given discharge instructions and they have confirmed that they understand the instructions. Patient ambulatory with steady gait.
== END 2020-08-20 03:43 | disposition home or self-care (01) ==
LOC: ED 01:06
DX: R11.2 Nausea with vomiting, unspecified (principal); R19.7 Diarrhea, unspecified; M79.10 Myalgia, unspecified site; J45.909 Unspecified asthma, uncomplicated; G43.909 Migraine, unspecified, not intractable, without status migrainosus; F17.210 Nicotine dependence, cigarettes, uncomplicated; Z90.49 Acquired absence of other specified parts of digestive tract; Z98.51 Tubal ligation status
CPT/HCPCS: 36415; 80053; 83690; 84703; 85025; 96361; 96374; 99283; J2405; J7030

== ENCOUNTER 2020-11-23 05:20 | Emergency (ER) | payer MEDICAID ==
[~2020-11-23] VITALS: Ht 170.2 cm; Wt 61.1 kg
[~2020-11-23 05:20] MED LIST changes: +NAPR-872 PO; -NAPR250T6 PO
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
[2020-11-23 06:24] VITALS: BP 102/50
--- NOTE | 2020-11-23 06:31 | NUR ---
PT RESTING ON GURNEY, NAD, APPEARS COMFORTABLE, SIGNIFICANT OTHER AT BS. NO CHANGE IN CONDITION, BED IN LOWEST, RAILS ENGAGED, CALL LIGHT ON LAP, PT WATCHING TV. WCTM. WAITING FOR RAD READ
--- NOTE | 2020-11-23 06:42 | NUR ---
BEDSIDE REPORT TO [place] [facility], PT CARE TRANSFERRED AT THIS TIME.
--- NOTE | 2020-11-23 06:48 | NUR ---
PATIENT RESTING IN [place], [place], CUP OF ICE PROVIDED, VSS, CALL LIGHT WITHIN REACH, NO FURTHER NEEDS AT THIS TIME. WAITING FOR READ ON X-RAY.
--- NOTE | 2020-11-23 08:04 | NUR ---
Patient given discharge instructions and prescription and they have confirmed that they understand the instructions. Patient ambulatory with use of crutches from ED to private vehicle.
== END 2020-11-23 08:05 | disposition home or self-care (01) ==
LOC: ED 06:19
DX: S93.491A Sprain of other ligament of right ankle, initial encounter (principal); J45.909 Unspecified asthma, uncomplicated; Z90.89 Acquired absence of other organs; W18.30XA Fall on same level, unspecified, initial encounter; Y93.89 Activity, other specified; Y92.410 Unspecified street and highway as the place of occurrence of the external cause; Y99.8 Other external cause status
CPT/HCPCS: 99283